=== PATIENT | female | born 1940 | race Caucasian/White ===

== ENCOUNTER 2016-05-10 11:00 | Emergency (ER) | payer OTHER ==
[2016-05-10 11:31] VITALS: RESP 18
[2016-05-10 11:42] LABS: COLOR YELLOW; LEUKOCYTE ESTERASE,URINE 1+ (NEGATIVE); NITRITE,URINE NEGATIVE (NEGATIVE); PH,URINE 6.5 (5.0-7.5)
[2016-05-10 11:53] LABS: BACTERIA 1+ /hpf (NONE SEEN); RENAL EPITHELIAL CELLS 1+ /hpf (NONE SEEN)
--- NOTE | 2016-05-10 12:53 | UCPHY ---
H & P Patient Type: Established Chief Complaint Nursing Narrative: LEFT SIDED FLANK PAIN STARTED ON MONDAY, DENIES INJURY OR TRAUMA, DENIES N/V/D, DENIES FEVERS, DENIES URINARY COMPLAINTS. LAST BOWEL MOVEMENT TODAY. Time Seen by Provider: 05/10/16 11:20 HPI/ROS: 76-year-old female presents complaining of left flank pain that began 2 days ago. She denies fevers or chills she denies nausea vomiting. She denies prior history of trauma. She denies dysuria. She denies diarrhea. Review of systems General no fever no chills no weakness HEENT no eye pain no eye discharge. No eye redness, no sore throat Respiratory no cough, no shortness of breath Cardiac no chest pain, no peripheral edema GI no abdominal pain, no diarrhea, no constipation, no nausea, no vomiting positive flank pain, no hematuria, no dysuria Musculoskeletal no myalgias, no joint pain Heme no easy bruising, no easy bleeding Endo no polyuria, no polydipsia Skin no rashes, no pruritus Neuro no syncope, no dizziness, no headaches Psych is no suicidal ideation, no homicidal ideation Source: Patient Exam Limitations: No limitations - Personal History Current Tetanus/Diphtheria Vaccine: Yes Tetanus Vaccine Date: 2014 - Medical/Surgical History Hx Asthma: No Hx Chronic Respiratory Disease: No Hx Diabetes: No Hx Cardiac Disease: No Hx Renal Disease: No Hx Cirrhosis: No Hx Alcoholism: No Hx HIV/AIDS: No Hx Splenectomy or Spleen Trauma: No Other PMH: PSH: hysterectomy;. PMH: hypertension, hypercholesterolemia, gerd - Family History Significant Family History: No pertinent family hx - Social History Smoking Status: Never smoked Alcohol Use: None Drug Use: None - Physical Exam Exam: 76-year-old female HEENT atraumatic normocephalic, extraocular muscles intact, anicteric Oropharynx negative for erythema negative exudate, tolerating her own secretions Neck supple no meningismus Lungs clear to auscultation bilaterally Heart regular rate and rhythm without murmur rub or gallop Abdomen nondistended normoactive bowel sounds soft nontender Back no CVA tenderness, no step-offs, no spinal tenderness Extremities no cyanosis clubbing or edema Neuro alert and oriented, no focal deficits Skin no rash Constitutional: Initial Vital Signs Temperature (C) 37.1 C 05/10/16 11:27 Heart Rate 80 05/10/16 11:27 Respiratory Rate 18 05/10/16 11:27 Blood Pressure 164/112 H 05/10/16 11:27 O2 Sat (%) 98 05/10/16 11:27 O2 Delivery Mode Room Air Allergies/Adverse Reactions: No Known Allergies Allergy (Verified 05/10/16 11:30) Home Medications: Medication Instructions Recorded Aspirin EC [Aspirin EC 81 mg (*)] 81 mg PO DAILY 10/31/15 Calcium Carbonate [Oyster Shell 500 mg PO DAILY 10/31/15 Calcium 500 mg (*)] Cholecalciferol Vit D3 [Vitamin D3 1,000 units PO DAILY 10/31/15 (*)] Herbals/Supplements -Info Only 1 ea PO DAILY 10/31/15 Hydrochlorothiazide [HCTZ (*)] 12.5 mg PO DAILY 10/31/15 Levothyroxine Sodium [Synthroid] 75 mcg PO DAILY@06 10/31/15 Crestor 05/10/16 Omeprazole 05/10/16 Valsartan 05/10/16 Medical Decision Making ED Course/Re-evaluation: Patient seen and evaluated for left flank pain of 2-3 days duration. No associated symptoms with no dysuria no fevers no chills no rash. Differential diagnosis considered Kidney stone, pyelonephritis, bladder infection, diverticulitis, musculoskeletal pain Urinalysis-nonspecific culture pending CBC within normal limits BMP within normal limits CT scan negative for obstructive uropathy, positive diverticuli without diverticulitis, positive hiatal hernia Patient's exam with mild left flank tenderness, no other positive physical findings Impression Left flank pain, unknown etiology Cannot rule out impending shingles Also possibly musculoskeletal in nature Plan Await urine culture Acetaminophen and ibuprofen as needed for pain Return for worsening symptoms high fever vomiting severe pain Follow up with primary care physician - Data Points Laboratory Results: Laboratory Results 05/10/16 13:00 05/10/16 13:00 Medications Given: Discontinued Medications Ketorolac Tromethamine (Toradol) 30 mg IVP EDNOW ONE Stop: 05/10/16 14:13 Last Admin: 05/10/16 14:17 Dose: 30 mg Departure - Departure Disposition: Home, Routine, Self-Care Clinical Impression: Left flank pain Condition: Good Instructions: Flank Pain (ED) Additional Instructions: May take ibuprofen every 8 hours as needed for pain be sure to take this with food May take acetaminophen every 4-6 hours as needed for pain Follow up with primary care physician Return as needed for any worsening of your pain or new problems. Referrals: Jo Ann Trinh MD [Primary Care Provider] - As per Instructions - PQRS PQRS Measurement: 134: Depression screening and followup, PRIME MD-PHQ2 (12 years and older) Over the last 2 weeks, how often have you been bothered by any of the following problems? 1. Feeling down, depressed, or hopeless? 2. Little interest or pleasure in doing things? Patient answered no to both 1 and 2 130: Documentation of medications. Reviewed all patient medications, doses, route and frequency. 226: Do you smoke? No. 47: 65 and older: Advanced care planning. Patient designates surrogate decision maker as spouse.. [Patient has advanced directive.] 51: 18 years old and older with diagnosis of COPD, spirometry performance. [Patient has no history of COPD 52: 18 years old and older with COPD and symptoms of COPD or FEV1<60% predicted prescribed a B Agonist. [Spirometry not performed; equipment not available.]
[2016-05-10 13:08] LABS: % IMMATURE GRANULYOCYTES 0.5 % (0.0-1.1); ABSOLUTE IMMATURE GRANULOCYTES 0.03 10^3/uL (0.00-0.10); ADD DIFF? NO; ADD MORPH? NO; ADD SCAN? NO; ATYPICAL LYMPHOCYTE FLAG 10 (0-99); FRAGMENT RBC FLAG 0 (0-99); HEMATOCRIT 40.7 % (38.0-47.0); HEMOGLOBIN 13.8 g/dL (12.6-16.3); LEFT SHIFT FLG 0 (0-99); LIPEMIA HEMOLYSIS FLAG 90 (0-99); MEAN CELL HEMOGLOBIN 29.9 pg (27.9-34.1); MEAN CELL HEMOGLOBIN CONCENTR. 33.9 g/dL (32.4-36.7); MEAN CELL VOLUME 88.1 fL (81.5-99.8); MEAN PLATELET VOLUME 9.3 fL (8.7-11.7); PLATELET CLUMPS FLAG 0 (0-99); PLATELET COUNT 242 10^3/uL (150-400); RED BLOOD CELL COUNT 4.62 10^6/uL (4.18-5.33); RED CELL DISTRIBUTION WIDTH 11.9 % (11.5-15.2)
[2016-05-10 13:28] LABS: ANION GAP 12 mEq/L (8-16); CALCIUM 9.4 mg/dL (8.5-10.4); CARBON DIOXIDE 26 mEq/l (22-31); CHLORIDE 97 mEq/L (97-110); CREATININE 0.6 mg/dL (0.6-1.0); GLOMERULAR FILTRATION RATE > 60; GLUCOSE 112 mg/dL (70-100); POTASSIUM 3.8 mEq/L (3.5-5.2); SODIUM 135 mEq/L (134-144)
[2016-05-10] MEDS ORDERED: KETOROLAC 30 MG/1 ML SDV IVP ONE (14:12)
[2016-05-10] MEDS ORDERED: KETOROLAC 30 MG/1 ML SDV ONE (14:12)
[2016-05-10 14:45] VITALS: BP 148/72; PULSE 75; TEMP 98.4; O2SAT 95
== END 2016-05-10 14:45 | disposition home or self-care (01) ==
LOC: CED 11:00
DX: R10.9 Unspecified abdominal pain (principal)
CPT/HCPCS: 74176; 96374; G0463; J1885; 80048-PO; 81003-PO; 81015-PO; 85025-PO; 99214-PO

== ENCOUNTER → 2016-06-29 | Outpatient (CLI) | payer OTHER | LOC: FIMAGING 12:06 | PROVIDERS: ATTEND Family Medicine | DX: Z12.31 Encounter for screening mammogram for malignant neoplasm of breast (principal) | CPT/HCPCS: G0202 ==

== ENCOUNTER 2017-04-02 13:35 | Emergency (ER) | payer OTHER ==
[2017-04-02 13:52] VITALS: TEMP 98.6; O2SAT 94
--- NOTE | 2017-04-02 14:48 | EDPHY ---
General - History Smoking Status: Never smoked Time Seen by Provider: 04/02/17 14:45 Narrative: CHIEF COMPLAINT: Fall, right wrist pain, left thumb pain HISTORY OF PRESENT ILLNESS: Patient reports a mechanical fall 1:30 p.m. Today. She was exiting her vehicle when she got her foot caught in her purse strap. She landed outward stretched right arm and left arm. She complains of severe pain in the right wrist and mild pain on the left thumb. Worse with palpation and movement. No numbness or tingling. No weakness. Superficial laceration to the left thumb she says. She did not strike her head or lose conscious. No headache, nausea, vomiting. No chest, back or abdominal pain. No pain in the shoulders or elbows of either arm. ESTABLISHED ORTHOPEDIST: None REVIEW OF SYSTEMS: Ten systems reviewed and are negative unless otherwise noted in the HPI PAST MEDICAL HISTORY: Hypertension, hypothyroid, dyslipidemia, acid reflux. Does not take anticoagulants PAST SURGICAL HISTORY: No recent surgeries. SOCIAL HISTORY: Nonsmoker. Lives independently with her spouse. Retired FAMILY HISTORY: Noncontributory EXAMINATION General Appearance: Alert, no distress HEENT: Head normocephalic atraumatic. Pupils equal round reactive to light. Neck: Supple nontender. Painless range of motion Cardiovascular: Symmetric radial pulses 2+. Brisk cap refill all fingers. Neurological: A&O, 2 point sensation intact on the right hand and left thumb. No wrist drop. Good strength of the interossei on the right hand. Skin: Warm and dry, no rash. Superficial abrasion to the left thumb distally just at the nail bed. No involvement of the nail. No foreign body. Non suturable laceration Extremities: Deformity and tenderness of the right wrist. No tenderness of the right fingers or hand. There is no tenderness of the right elbow. Range of motion of the wrist not tested due to pain and deformity. There is also pain to palpation of the left thumb over the distal phalanx. There is no pain at the base of the left thumb. There is a chronic deformity unchanged from today's fall. Neurovascular intact distal to both these injuries. Psychiatric: Mood and affect normal DIFFERENTIAL DIAGNOSES: Including but not limited to radius fracture, dislocation, sprain, strain, thumb fracture, thumb sprain, laceration MDM: 3:00 p.m. Mechanical fall with closed, displaced right wrist fracture and comminution fracture of the left thumb distal phalanx. The left thumb is a closed fracture as well. There is a superficial laceration not communicating with the area fracture. She is neurovascular intact distally. I have administered a hematoma block to the right wrist. I will discuss with Orthopedics as this is an unstable fracture. 3:10 p.m. Hematoma block administered to the right wrist. 3:35 p.m. Case discussed with Dr. Garza. I have reviewed the x-rays with him. He does recommend a closed reduction of the left wrist. He would like to see the patient this week to plan for surgical intervention of the left wrist. 3:45 p.m. I have attempted a closed reduction of the right wrist with good anatomic alignment by visualization of feel. She is neurovascular intact postprocedure. Proceed with splint placement. 4:15 p.m. Patient has been placed in a sugar-tong splint and I have re-evaluated. She is neuro intact. We discussed wound care. We discussed nonweightbearing of the right upper extremity. We discussed the splint in place on the left thumb. We discussed ED precautions. We discussed contacting the on-call orthopedist tomorrow morning for definitive care. She is comfortable this plan and discharged home in stable condition. PROCEDURE: Closed reduction of right wrist Consent: Verbal Location: Right wrist Anesthesia: Hematoma block as below Procedure: Time-out was performed. After good anesthesia, the patient was placed in finger traps. She was placed in traction with 2 L of saline. I was able to manipulate the fracture with traction and volar pressure. Good anatomic alignment by visualization. Tolerated well. No complications. Complications: None PROCEDURE: Hematoma block Indication: Wrist fracture Consent: Verbal Location: Right wrist, radius Anesthesia: Lidocaine 1% plain, 10 mL Description: Posterior aspect of the distal forearm was prepped with chlorhexidine. Using sterile technique, needle was inserted to the area of fracture line. Hematoma withdrawn and the above was injected. This was tolerated well with good anesthesia. Complications: None SUPERVISION: Patient was independently examined, but I discussed the case with my secondary supervising physician Dr. Neumann ED Precautions: Worsening pain. Erythema, edema, cyanosis, pallor, paresthesia or anesthesia. (Carmine Reich) The patient was evaluated and managed by the physician delinquent tax collector assistant. I have reviewed this chart and I agree with the findings and plan of care as documented , as indicated by my signature. I am the secondary supervising physician. I reviewed the x-rays. (Bernarda Neumann) - Objective Vital Signs: Initial Vital Signs Temperature (C) 37 C 04/02/17 13:49 Heart Rate 75 04/02/17 13:49 Respiratory Rate 18 04/02/17 13:49 Blood Pressure 165/90 H 04/02/17 13:49 O2 Sat (%) 94 04/02/17 13:49 O2 Delivery Mode Room Air Allergies/Adverse Reactions: No Known Allergies Allergy (Verified 04/02/17 13:48) Home Medications: Medication Instructions Recorded Aspirin EC [Aspirin EC 81 mg (*)] 81 mg PO DAILY 10/31/15 Calcium Carbonate [Oyster Shell 500 mg PO DAILY 10/31/15 Calcium 500 mg (*)] Cholecalciferol Vit D3 [Vitamin D3 1,000 units PO DAILY 10/31/15 (*)] Herbals/Supplements -Info Only 1 ea PO DAILY 10/31/15 Hydrochlorothiazide [HCTZ (*)] 12.5 mg PO DAILY 10/31/15 Levothyroxine Sodium [Synthroid] 75 mcg PO DAILY@06 10/31/15 Crestor 05/10/16 Omeprazole 05/10/16 Valsartan 05/10/16 Hydrocodone/APAP 5/325 [[place] 1 - 2 tab PO Q4H PRN #13 tab 04/02/17 5/325 (*)] Departure - Departure Disposition: Home, Routine, Self-Care Clinical Impression: Fracture of radius, distal, right, closed, Fracture of distal phalanx of thumb Condition: Good Instructions: Finger Fracture (ED), Wrist Fracture in Adults (ED), ORIF of a Wrist Fracture (DC) Additional Instructions: 1. Medication as prescribed as needed 2. Follow up with the on-call orthopedist Dr. Garza as discussed 3. ED precautions as discussed for neurovascular changes 4. Strict nonweightbearing to the right upper extremity until seen by orthopedist Referrals: Jo Ann Trinh MD [Primary Care Provider] - As per Instructions Ovidio Garza MD [Medical Doctor] - As per Instructions Prescriptions: Hydrocodone/APAP 5/325 [[place] 5/325 (*)] 1 - 2 tab PO Q4H PRN #13 tab PRN Reason: Pain, Moderate
[2017-04-02 16:28] VITALS: BP 164/101; PULSE 84; RESP 16
== END 2017-04-02 16:27 | disposition home or self-care (01) ==
PROC: 0PSHXZZ Reposition Right Radius, External Approach (ICD-10-PCS; principal; 2017-04-02)
DX: S52.571A Other intraarticular fracture of lower end of right radius, initial encounter for closed fracture (principal); S62.522A Displaced fracture of distal phalanx of left thumb, initial encounter for closed fracture; I10 Essential (primary) hypertension; Z79.82 Long term (current) use of aspirin; W18.39XA Other fall on same level, initial encounter
CPT/HCPCS: 25605; 73110; 73140; 99284; A4565; L3925

== ENCOUNTER 2017-04-06 05:42 | Day surgery (SDC) | payer OTHER ==
--- NOTE | 2017-04-04 14:10 | GHP ---
[f rep st] PREOP HISTORY AND PHYSICAL DATE OF ADMISSION: 04/06/2017 SCHEDULED DATE OF SURGERY: 04/06/2017 HISTORY OF PRESENT ILLNESS: The patient is a 77-year-old female who fell out of a car and sustained an intra-articular distal radius fracture on the right. This was closed reduced, placed into a sugar -tong splint over the weekend. She was seen in the office today and decision made to proceed with an open reduction, internal fixation of her fracture. PRIOR MEDICAL HISTORY: Notable for high cholesterol, reflux, hypertension, osteoporosis. SURGICAL HISTORY: None. MEDICATIONS: Hydrochlorothiazide, Crestor, Synthroid, valsartan. ALLERGIES: No known drug allergies. SOCIAL HISTORY: She is retired. Does not drink. Does not smoke. . Lives here in town. REVIEW OF SYSTEMS: Unremarkable. PHYSICAL EXAM: GENERAL: Healthy-appearing 77-year-old female. She is 5 feet 4 inches tall, weighs 192 pounds. Alert and oriented x3. VITAL SIGNS: Blood pressure is 137/96, pulse is 74, respiratory rate is 14 on room air. HEENT: Normocephalic, atraumatic. Extraocular muscles are intact. NECK: Supple. There is no lymphadenopathy. No JVD. CHEST: Clear to auscultation. CARDIOVASCULAR: Reg ular rate and rhythm. ABDOMEN: Soft, nontender, nondistended. There is no hepatosplenomegaly. EXT REMITIES: Focusing on the right arm, she is in a sugar-tong splint. Fingers are swollen as would be expected. She is moving them well. Sensation to light touch is intact in both the median and ulnar nerve distributions. Brisk capillary refill to all fingers. X-RAYS: 4 views of the wrist pre and post reduction are reviewed from the hospital. They show an in tra-articular comminuted distal radius fracture. ASSESSMENT: Intra-articular distal radius fracture with poor bone quality. PLAN: I recommend proceeding with an open reduction, internal fixation to the wrist. Risks and bene fits of surgery including postoperative stiffness, need for possible future surgery, possibility of n erve or blood vessel injury were described. She understands these risks, wishes to proceed. Preoper ative paperwork was completed. Will plan on surgery first thing morning. Short-term she wi ll stay in the sling. Continue ice and elevation. /[id number]/MODL
[2017-04-06] MEDS ORDERED: ceFAZolin 2 GM/SWFI 2 GM/20 ML SYR IVP ONE (05:58)
[2017-04-06] MEDS ORDERED: LR 1,000 ML IV ONE (05:59)
[2017-04-06] MEDS ORDERED: BUPIVACAINE/EPI 0.5% 30 ML SDV ONE (06:46)
--- NOTE | 2017-04-06 06:50 | PDHPUP ---
History & Physical Update H&P update statement: This history and physical update is based on an assessment of the patient which was completed after admission or registration (within 24 hours), but prior to the surgery/procedure. H&P update: H&P reviewed & patient examined, no change in patient's condition since H&P completed
--- NOTE | 2017-04-06 07:04 | PDANEPAE ---
ANE History of Present Illness R wrist fracture ANE Past Medical History - Cardiovascular History Hx Hypertension: Yes Hx Arrhythmias: No Hx Chest Pain: No Hx Coronary Artery / Peripheral Vascular Disease: No Hx CHF / Valvular Disease: No Hx Palpitations: No Cardiovascular History Comment: HYPERLIPIDEMIA - Pulmonary History Hx COPD: No Hx Asthma/Reactive Airway Disease: No Hx Recent Upper Respiratory Infection: No Hx Oxygen in Use at Home: No Hx Sleep Apnea: No Sleep Apnea Screening Result - Last Documented: Negative - Neurologic History Hx Cerebrovascular Accident: No Hx Seizures: No Hx Dementia: No Neurologic History Comment: OCCAS VERTIGO - Endocrine History Hx Diabetes: Yes Endocrine History Comment: HYPOTHYROID - Renal History Hx Renal Disorders: No - Liver History Hx Hepatic Disorders: No - Neurological & Psychiatric Hx Hx Neurological and Psychiatric Disorders: No - Cancer History Hx Cancer: No - Congenital Disorder History Hx Congenital Disorders: No - GI History Hx Gastrointestinal Disorders: Yes Gastrointestinal History Comment: ACID REFLUX - Other Health History Other Health History: NEG - Surgical History Prior Surgeries: HYSTERECTOMY. VARICOSE VEINS ANE Review of Systems Review of Systems: - Exercise capacity METS (RN): 4 METS ANE Patient History - Allergies Allergies/Adverse Reactions: No Known Allergies Allergy (Verified 04/02/17 13:48) - Home Medications Home Medications: RX: Aspirin EC [Aspirin EC 81 mg (*)] 81 mg PO DAILY 10/31/15 [Last Taken ] RX: Calcium Carbonate [Oyster Shell Calcium 500 mg (*)] 500 mg PO DAILY [Last Taken 04/04/17] RX: Cholecalciferol Vit D3 [Vitamin D3 (*)] 1,000 units PO DAILY 10/31/15 [Last Taken 04/04/17] RX: Herbals/Supplements -Info Only 1 ea PO DAILY 10/31/15 [Last Taken 04/04/17] RX: Hydrochlorothiazide [HCTZ (*)] 12.5 mg PO DAILY 10/31/15 [Last Taken ] RX: Levothyroxine Sodium [Synthroid] 75 mcg PO DAILY@06 10/31/15 [Last Taken ] Crestor 05/10/16 [Last Taken 04/05/17] Omeprazole 05/10/16 [Last Taken 04/05/17] Valsartan 05/10/16 [Last Taken 04/05/17] - NPO status NPO Since - Liquids (Date): 04/05/17 NPO Since - Liquids (Time): 11:59 NPO Since - Solids (Date): 04/05/17 NPO Since - Solids (Time): 22:00 - Smoking Hx Smoking Status: Never smoked - Family Anes Hx Family Hx Anesthesia Complications: NEG ANE Labs/Vital Signs - Labs Result Diagrams: 04/06/17 06:15 - Vital Signs Blood Pressure: 152/85 Heart Rate: 68 Respiratory Rate: 16 O2 Sat (%): 95 Height: 162.56 cm Weight: 87.09 kg ANE Physical Exam - Airway Neck exam: FROM Mallampati Score: Class 2 Mouth exam: normal dental/mouth exam - Pulmonary Pulmonary: no respiratory distress - Cardiovascular Cardiovascular: regular rate and rhythym - ASA Status ASA Status: III ANE Anesthesia Plan Anesthesia Plan: GA w LMA Regional Anesthesia: supraclavicular BP NB
[2017-04-06] MEDS ORDERED: ROPIVACAINE HCL 150 MG/30 ML INJ ONE (07:08)
[2017-04-06] MEDS ORDERED: fentaNYL 100 MCG/2 ML INJ ONE ×3 (07:08→09:01)
[2017-04-06] MEDS ORDERED: MIDAZOLAM 2 MG/2 ML VIAL ONE (07:09)
[2017-04-06] MEDS ORDERED: PROPOFOL 200 MG/20 ML VIAL ONE ×2 (07:09→07:20)
[2017-04-06] MEDS ORDERED: NALOXONE HCL 0.4 MG/ML INJ IVP PRN (07:44)
[2017-04-06] MEDS ORDERED: PROMETHAZINE HCL 25 MG/ML INJ IVP PRN (07:44)
[2017-04-06] MEDS ORDERED: fentaNYL 100 MCG/2 ML INJ IVP PRN (07:44)
[2017-04-06] MEDS ORDERED: ONDANSETRON 4 MG/2 ML VIAL IVP PRN (07:44)
[2017-04-06] MEDS ORDERED: HYDROmorphONE/DILAUDID 1 MG/ML INJ IVP PRN (07:44)
[2017-04-06] MEDS ORDERED: DEXAMETHASONE 4 MG/ML VIAL IVP PRN (07:44)
[2017-04-06] MEDS ORDERED: DEXAMETHASONE 4 MG/ML VIAL ONE (08:12)
[2017-04-06] MEDS ORDERED: ONDANSETRON 4 MG/2 ML VIAL ONE (08:12)
--- NOTE | 2017-04-06 08:18 | POSTOPPROG ---
Post Op Note Date of Operation: 04/06/17 Surgeon: Ovidio Garza Hot Blaster: philippe Maddox Anesthesia: GET(General Endotracheal) Pre-op Diagnosis: RT intraarticular distal radius fracture Post-op Diagnosis: same Procedure: ORIF RT distal radius Findings: comminuted distal radius fx Inf/Abcess present in the surg proc area at time of surgery?: No EBL: Minimal Complications: none
--- NOTE | 2017-04-06 08:22 | POSTANESTH ---
Post Anesthetic Evaluation Cardiovascular Status: Normal, Stable Respiratory Status: Normal, Stable Level of Consciousness/Mental Status: Can Participate in Eval Pain Control: Adequate, Prn Tx Ordered Nausea/Vomiting Control: Adequate, Prn Tx Ordered Complications Possibly Related to Anesthesia: None Noted
--- NOTE | 2017-04-06 08:33 | GOP ---
[f rep st] OPERATIVE REPORT DATE OF OPERATION: 04/06/2017 SURGEON: Ovidio Garza MD PERSONAL LINES APPRAISER: Zeferino Maddox, [employer], [facility]. ANESTHESIA: Supraclavicular block with general. ANESTHESIOLOGIST: Dr. Cedillo. PREOPERATIVE DIAGNOSIS: Intra-articular displaced distal radius fracture right. POSTOPERATIVE DIAGNOSIS: Intra-articular displaced distal radius fracture right. PROCEDURE PERFORMED: Open reduction, internal fixation, distal radius fracture right wrist. FINDINGS: INDICATIONS: Venessa is a 77-year-old female, who slipped and fell last weekend and sustained intra -articular distal radius fracture. This was highly comminuted and displaced despite closed reductio n in the emergency department. She was evaluated in the office, decision was made to proceed with an open reduction, internal fixation of her wrist. DESCRIPTION OF PROCEDURE: After appropriate informed consent was obtained, the patient was taken to the operating room, placed supine on the operating table. Dr. Cedillo administered a supraclavicular block followed by general endotracheal tube anesthesia. The right upper extremity was prepped and dr aped in usual sterile fashion. Exsanguinated the limb, inflated the tourniquet to 250 mmHg. I made a standard volar incision centered over the flexor carpi radialis tendon. The soft tissues were care fully dissected. Median nerve was protected, as was the radial artery. The muscle was elevated off the distal radius. The fracture was in 2 pieces. I was able to reduce this, hold it in place with a K-wire, placed the volar plate in place, placed 1 shaft screw and adjusted its position and confirme d its position with AP lateral fluoroscopic images. Then while holding the fracture reduced, we plac ed 1 compression screw distally pulling the distal fragment back to the plate and then followed that with a series of locking screws through the distal end of the plate and 2 more locking screws in the shaft. Final imaging was obtained which showed satisfactory reduction of the fracture. Hardware was in good position. Wound was irrigated. Deep layers closed with 3-0 Vicryl, superficial layers clos ed with 4-0 Monocryl in a subcuticular fashion. I instilled 15 mL of 0.5% Marcaine plain around the incision. Sterile dressing and a volar splint were applied. The patient was awakened from anesthesi a, taken to the recovery room in satisfactory condition. There were no immediate intraoperative comp lications. Augusto Maddox's assistance was required throughout the entire case. TOTAL TOURNIQUET TIME: 37 minutes at 250 mmHg. IMPLANT USED: [employer] volar locking plate. COMPLICATIONS: None. DRAINS: None. /[id number]/MODL
[2017-04-06 09:14] VITALS: BP 133/93; RESP 17; O2SAT 94
[2017-04-06 10:06] VITALS: PULSE 78; TEMP 208.9
== END 2017-04-06 10:03 | disposition home or self-care (01) ==
LOC: FSGY 05:42
PROVIDERS: ATTEND Orthopaedic Surgery
PROC: 0PSH04Z Reposition Right Radius with Internal Fixation Device, Open Approach (ICD-10-PCS; principal; 2017-04-06 07:15)
DX: S52.571A Other intraarticular fracture of lower end of right radius, initial encounter for closed fracture (principal); V49.3XXA Car occupant (driver) (passenger) injured in unspecified nontraffic accident, initial encounter; M81.0 Age-related osteoporosis without current pathological fracture; I10 Essential (primary) hypertension; E78.5 Hyperlipidemia, unspecified; K21.9 Gastro-esophageal reflux disease without esophagitis
CPT/HCPCS: C1713; J0690; J1100; J2250; J2405; J2704; J2795; J3010

== ENCOUNTER → 2017-06-19 | Outpatient (CLI) | payer OTHER | LOC: FIMAGING 13:31 | PROVIDERS: ATTEND Family Medicine | DX: Z13.820 Encounter for screening for osteoporosis (principal); M85.89 Other specified disorders of bone density and structure, multiple sites; E03.9 Hypothyroidism, unspecified; E87.6 Hypokalemia; R03.0 Elevated blood-pressure reading, without diagnosis of hypertension; Z78.0 Asymptomatic menopausal state; Z79.899 Other long term (current) drug therapy ==

== ENCOUNTER → 2017-08-11 | Outpatient (CLI) | payer OTHER | LOC: FIMAGING 14:21 | PROVIDERS: ATTEND Family Medicine | DX: Z12.31 Encounter for screening mammogram for malignant neoplasm of breast (principal) ==

== ENCOUNTER → 2018-06-07 | Outpatient (CLI) | payer OTHER | LOC: FIMAGING 13:35 | PROVIDERS: ATTEND Family Medicine | DX: K44.9 Diaphragmatic hernia without obstruction or gangrene (principal) ==

== ENCOUNTER → 2018-08-09 | Outpatient (CLI) | payer OTHER | LOC: FIMAGING 16:33 ==